=== PATIENT | male | born 1955 | race Caucasian/White ===

== ENCOUNTER 2019-01-19 16:47 | Emergency (ER) | payer OTHER ==
[2019-01-19] MEDS ORDERED: SODIUM CHLORIDE 0.9% IV ONE (17:19)
[2019-01-19] MEDS ORDERED: Levofloxacin/Dextrose 5%-Water 750 MG in Premix Bag 1 BAG IV ONE (17:22)
[2019-01-19] MEDS ORDERED: Ibuprofen 200 MG Tab PO ONE (17:23)
[2019-01-19] MEDS ORDERED: Sodium Chloride 0.9% 1,000 ML IV SCH (17:30)
[2019-01-19] MEDS ORDERED: Piperacillin/Tazobactam 4.5 GM in Sodium Chloride 0.9% 100 ML IV ONE (17:30)
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
[2019-01-19] MEDS ORDERED: Lidocaine 2% Viscous Solution 15 ML Cup PO ONE (17:44)
[2019-01-19] MEDS ORDERED: Ondansetron 8 MG in Sodium Chloride 0.9% 50 ML IV ONE (18:07)
[2019-01-19] MEDS ORDERED: Pantoprazole 40 MG Vial IVPUSH ONE (18:09)
[2019-01-19] MEDS ORDERED: Ondansetron 4 MG/2 ML SDV IVPUSH ONE (18:10)
[2019-01-19] MEDS ORDERED: Pantoprazole 80 MG in Sodium Chloride 0.9% 100 ML IV SCH (18:15)
[2019-01-19] MEDS ORDERED: Ondansetron 4 MG/2 ML SDV ONE (18:17)
== END 2019-01-19 20:45 ==
LOC: CC.ED 16:47
DX: A41.9 Sepsis, unspecified organism (principal); C85.90 Non-Hodgkin lymphoma, unspecified, unspecified site; I25.2 Old myocardial infarction; K92.2 Gastrointestinal hemorrhage, unspecified; D69.6 Thrombocytopenia, unspecified; N19 Unspecified kidney failure; I10 Essential (primary) hypertension; Z95.5 Presence of coronary angioplasty implant and graft; Z87.891 Personal history of nicotine dependence; Z79.82 Long term (current) use of aspirin; Z79.899 Other long term (current) drug therapy
CPT/HCPCS: 36415; 36430; 71046; 74019; 80053; 82270; 82271; 83605; 84484; 85025; 85610; 85730; 86140; 86850; 86900; 86901; 86920; 86922; 87040; 93005; 96365; 96367; 96368; 96375; 96376; 99285-25; A9270-GY; C9113; J1956; J2405; J2543; J3370; J7030; J7050; P9016; P9017